=== PATIENT | male | born 1990 | race Hispanic/Latino ===

== ENCOUNTER 2020-03-11 18:11 | Emergency (ER) | payer SELFPAY ==
--- NOTE | 2020-03-11 20:14 | ER ---
Nurse's Notes [facility] Name: Davey Palma Age: 29 yrs Sex: Male : 1990 Arrival Date: 03/11/2020 Time: 18:17 Bed External Waiting [facility] MD: Diagnosis: Presentation: 03/11 18:33 Chief complaint: Patient states: was diagnosed with hemorrhoids on , today em rectal pain became worse, also reports rectal bleeding for about a year, denies abdominal pain or fever. Coronavirus screen: Client denies travel out of the [place] in the last 14 days. Ebola Screen: Patient negative for fever greater than or equal to 101.5 degrees Fahrenheit, and additional compatible Ebola Virus Disease symptoms Patient denies exposure to infectious person. Patient denies travel to an Ebola-affected area in the 21 days before illness onset. No symptoms or risks identified at this time. Initial Sepsis Screen: Does the patient meet any 2 criteria? No. Patient's initial sepsis screen is negative. Does the patient have a suspected source of infection? No. Patient's initial sepsis screen is negative. Risk Assessment: Do you want to hurt yourself or someone else? Patient reports no desire to harm self or others. Onset of symptoms was March 07, 2020. 18:33 Method Of Arrival: Ambulatory em 18:33 Acuity: ROSEY 3 em Historical: - Allergies: 18:37 No Known Allergies; em - PMHx: 18:37 Asthma; em - PSHx: 18:37 None; em - Immunization history:: Adult Immunizations up to date. - Social history:: Smoking status: Patient denies any tobacco usage or history of. Vital Signs: 18:33 BP 127 / 81; Pulse 70; Resp 18; Temp 99.1; Pulse Ox 100% on R/A; Weight 99.79 kg; em Height 6 ft. 1 in. (185.42 cm); Pain 7/10; 18:33 Body Mass Index 29.03 (99.79 kg, 185.42 cm) em ED Course: 18:17 Patient arrived in ED. ag5 18:36 Triage completed. em 18:37 Arm band placed on. em Administered Medications: No medications were administered Outcome: 20:14 Patient left the ED. sg Signatures: Parag Katz RN RN Bryant Barron, RN RN em Mary, Tawanda ag5
[2020-03-11 20:33] VITALS: BP 127/81; TEMP 99.1; O2SAT 100
== END 2020-03-11 20:14 | disposition left against medical advice (07) ==
LOC: ER 18:11
DX: Z53.21 Procedure and treatment not carried out due to patient leaving prior to being seen by health care provider (principal)
CPT/HCPCS: 99281

== ENCOUNTER 2024-10-15 08:35 | Emergency (ER) | payer SELFPAY ==
--- OUTSIDE RECORDS SUMMARY | 2024-10-15 08:39 | XMS REPORT | Continuity of Care Document ---
Author Name Unknown Address [address] [facility] [place] [address] [facility] [place] Address [address] [facility] [place] [address] Care Team Providers Care Conduit Installer Name Role Phone RAVI MERINO Attending Clinician Unava ilable [facility]_WalkInSchedul Attending Clinician Unavail able [facility]WalkInSchedul Admitting Clinician Unavail able Payers Payer Name Policy Type Policy Number Effective Date Expirati on Date Source Problems Condition Name Condition Details Condition Category Status Onset Date Resolution Date Last Treatment Date Treating Clinician Comments Source Acute upper respirator y infection Acute Upper Respirator y Infection Problem Active 07-24 00:00: 00 [facility] Upper respirator y tract finding Upper Respirator y Tract Finding Problem Active 07-24 00:00: 00 [facility] Internal hemorrhoid s Internal Hemorrhoid s Problem Active 10-31 00:00: 00 [facility] Gastroesop hageal reflux disease without esophagiti s Gastroesop hageal Reflux Disease without Esophagiti s Problem Active 10-31 00:00: 00 [facility] Social History Smoking Status Start Date Stop Date Source Never Smoker [facility] Medications Ordered Medication Name Filled Medication Name Start Date Stop Date Current Medication? Ordering Clinician Indication Dosage Frequency Signature (SIG) Comments Components Source Kenalog-80 80 mg/mL suspension for injectionTa ke 80 mg by injection route. Kenalog-80 80 mg/mL suspension for injectionTa ke 80 mg by injection route. 07-24 17:25: 39 No 80mg Kenalog-80 80 mg/mL suspension for injectionT alexandr 80 mg by injection route. [facility] bromphenira mine-pseudo ephedrine-D M 2 mg-30 mg-10 mg/5 mL oral syrup Take 10 mL every 4 hours by oral route. bromphenira mine-pseudo ephedrine-D M 2 mg-30 mg-10 mg/5 mL oral syrup Take 10 mL every 4 hours by oral route. No 10mL Q4H bromphenir amine-pseu doephedrin e-DM 2 mg-30 mg-10 mg/5 mL oral syrup Take 10 mL every 4 hours by oral route. [facility] Motrin Dual Action with Tylenol 125 mg-250 mg tablet Take 2 tablets every 8 hours by oral route for 4 days. Motrin Dual Action with Tylenol 125 mg-250 mg tablet Take 2 tablets every 8 hours by oral route for 4 days. No 2 Q8H Motrin Dual Action with Tylenol 125 mg-250 mg tablet Take 2 tablets every 8 hours by oral route for 4 days. [facility] omeprazole 40 mg capsule,del ayed release Take 1 capsule every day by oral route. omeprazole 40 mg capsule,del ayed release Take 1 capsule every day by oral route. No 1capsul e(s) Q1D omeprazole 40 mg capsule,de layed release Take 1 capsule every day by oral route. [facility] Zithromax Z-Richard 250 mg tablet TAKE 2 TABLETS (500 MG) BY ORAL ROUTE ONCE DAILY FOR 1 DAY THEN 1 TABLET (250 MG) BY ORAL ROUTE ONCE DAILY FOR 4 DAYS Zithromax Z-Richard 250 mg tablet TAKE 2 TABLETS (500 MG) BY ORAL ROUTE ONCE DAILY FOR 1 DAY THEN 1 TABLET (250 MG) BY ORAL ROUTE ONCE DAILY FOR 4 DAYS No Zithromax Z-Richard 250 mg tablet TAKE 2 TABLETS (500 MG) BY ORAL ROUTE ONCE DAILY FOR 1 DAY THEN 1 TABLET (250 MG) BY ORAL ROUTE ONCE DAILY FOR 4 DAYS [facility] Immunizations Ordered Immunization Name Filled Immunization Name Date Status Comments Source COVID-19 (SARS-COV-2) vaccine, unspecified COVID-19 (SARS-COV-2) vaccine, unspecified Unknown Completed [facility] Vital Signs Vital Name Observation Time Observation Value Comments S ource Height 2024-07-24 00:00:00 74 [in_i] [facility] BP Systolic 2024-07-24 00:00:00 119 mm[Hg] [facility] BMI (Body Mass Index) 2024-07-24 00:00:00 27.2 kg/m2 [facility] Body Weight 2024-07-24 00:00:00 3384 [oz_av] [facility] BP Diastolic 2024-07-24 00:00:00 87 mm[Hg] [facility] Height 2024-04-23 00:00:00 74 [in_i] [facility] Body Weight 2024-04-23 00:00:00 3320 [oz_av] [facility] BP Systolic 2024-04-23 00:00:00 121 mm[Hg] [facility] BMI (Body Mass Index) 2024-04-23 00:00:00 26.6 kg/m2 [facility] BP Diastolic 2024-04-23 00:00:00 87 mm[Hg] [facility] BMI (Body Mass Index) 2023-11-01 00:00:00 27.3 kg/m2 [facility] Body Weight 2023-11-01 00:00:00 3408 [oz_av] [facility] BP Systolic 2023-11-01 00:00:00 116 mm[Hg] [facility] BP Diastolic 2023-11-01 00:00:00 85 mm[Hg] [facility] Height 2023-11-01 00:00:00 74 [in_i] [facility] Height 2023-10-20 00:00:00 74 [in_i] [facility] BP Diastolic 2023-10-20 00:00:00 81 mm[Hg] [facility] Body Weight 2023-10-20 00:00:00 3458 [oz_av] [facility] BP Systolic 2023-10-20 00:00:00 109 mm[Hg] [facility] BMI (Body Mass Index) 2023-10-20 00:00:00 27.7 kg/m2 [facility] BP Diastolic 2022-10-20 00:00:00 80 mm[Hg] [facility] Height 2022-10-20 00:00:00 74 [in_i] [facility] BMI (Body Mass Index) 2022-10-20 00:00:00 28.5 kg/m2 [facility] BP Systolic 2022-10-20 00:00:00 122 mm[Hg] [facility] ia Medical Body Weight 2022-10-20 00:00:00 3554 [oz_av] [facility] Procedures Procedure Date / Time Performed Performing Clinicia n Source CT, abdomen + pelvis, w/wo contrast 2024-04-23 00:00[facility]00 [facility] Start Date/Time End Date/Time Encounter Type Admission Type Attending [facility] Care Department Encounter ID Source 2024-07-24 00:00:00 2024-07-24 00:00:00 Livier Finnegan, [employer]: [address] [address] , Ph. [facility] - GC_CPC_Need angi Office [id number] [facility] 2024-04-23 00:00:00 2024-04-23 00:00:00 Moris Valerio, [employer]: [address] [address] , Ph. [facility] - GC_CPC_Need angi Office [id number] [facility] 2023-12-20 19:25:00 2023-12-20 21:48:00 Emergency E RAVI MERINO [facility] [id number] 00 [facility] 2023-11-01 00:00:00 2023-11-01 00:00:00 Rochelle Davies PA: [address] [address] , Ph. [facility] - GC_CPC_Need angi Office [id number] [facility] 2023-10-20 00:00:00 2023-10-20 00:00:00 Moris Valerio, [employer]: [id number] [address] , Ph. [facility] - GC_CPC_Need angi Office [id number] [facility] 2023-04-06 00:00:00 2023-04-06 00:00:00 Outpatient [facility]_Walk InSchedul [facility] [id number] [facility] 2022-10-20 00:00:00 2022-10-20 00:00:00 Outpatient GC_CPC_Walk [facility] [id number] [facility] 2022-10-20 00:00:00 2022-10-20 00:00:00 JAMILA Capone: [id number] [phone] , Ph. [facility] - GC[facility]CPC_[facility] Office [id number] [facility] Results Test Description Test Time Test Comments Results Result Co mments Source [facility]
--- NOTE | 2024-10-15 10:00 | RAD REPORT ---
EXAMINATION: XR LEFT ANKLE CLINICAL INDICATION: Male, 34 years old. Pain;Swelling TECHNIQUE: 3 view radiograph of the left ankle were obtained. COMPARISON: No prior exam. FINDINGS: Moderate lateral soft tissue swelling is present. No fracture or dislocation. Tiny calcanea l spurs.
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
[2024-10-16 12:39] VITALS: BP 116/86; TEMP 98.1; O2SAT 100
== END 2024-10-15 11:00 | disposition home or self-care (01) ==
LOC: ER 08:35
DX: M25.572 Pain in left ankle and joints of left foot (principal)
CPT/HCPCS: 99282

== ENCOUNTER 2024-10-25 08:17 | Emergency (ER) | payer SELFPAY ==
--- OUTSIDE RECORDS SUMMARY | 2024-10-25 08:20 | XMS REPORT | Continuity of Care Document ---
Author Name Unknown Address [address] [facility] [address] [place] [address] [facility] [address] [facility] [address] [place] [address] Care Team Providers Care Yard Motor Operator Name Role Phone RAVI MERINO Attending Clinician [...] Upper Respirator y Tract Finding Problem Active - 00:00: 00 [facility] Internal hemorrhoid s [...] mL every 4 hours by oral route. [facility] Motrin Dual Action with Tylenol [...] hours by oral route for 4 days. [facility] omeprazole 40 mg capsule,del ayed release Take 1 capsule every day by oral route. omeprazole 40 mg capsule,del ayed release Take 1 capsule every day by oral route. No 1capsul e(s) Q1D omeprazole 40 mg capsule,de layed release Take 1 capsule every day by oral route. [facility] Zithromax Z-Richard 250 mg tablet TAKE 2 [...] ORAL ROUTE ONCE DAILY FOR 4 DAYS [facility] Immunizations Ordered Immunization Name Filled Immunization Name Date Status Comments Source COVID-19 (SARS-COV-2) vaccine, unspecified COVID-19 (SARS-COV-2) vaccine, unspecified Unknown Completed [facility] Vital Signs Vital Name Observation Time Observation Value Comments S ource Height 2024-07-24 00:00:00 74 [in_i] [facility] Medical BP Systolic 2024-07-24 00:00:00 [...] Medical BP Systolic 2022-10-20 00:00:00 122 mm[Hg] [facility] Body Weight 2022-10-20 00:00:00 3554 [oz_av] [facility] Procedures Procedure Date / Time Performed Performing Clinicia n Source CT, abdomen + pelvis, w/wo contrast 2024-04-23 00:00:00 [facility] Encounters Start Date/Time End Date/Time Encounter Type Admission Type Attending [facility] Care Facility Care Department Encounter ID Source 2024-07-24 00:00:00 2024-07-24 00:00:00 Livier Finnegan, CANINE ENFORCEMENT OFFICER: [address] [address] , Ph. [facility] - GC_CPC_Need angi Office [id number] [facility] 2024-04-23 00:00:00 2024-04-23 00:00:00 Moris Valerio, CANINE ENFORCEMENT OFFICER: [address] [address] , Ph. [facility] - GC_CPC_Need angi Office [id number] [facility] 2023-12-20 19:25:00 2023-12-20 21:48:00 Emergency E RAVI MERINO [facility] [id number] [facility] 2023-11-01 00:00:00 2023-11-01 00:00:00 Rochelle Davies PA: [address] [address] , Ph. [facility] - GC_CPC_Need angi Office [id number] [facility] 2023-10-20 00:00:00 2023-10-20 00:00:00 Moris Valerio, CANINE ENFORCEMENT OFFICER: [address] [address] , Ph. [facility] - GC_CPC_Need angi Office [id number] [facility] 2023-04-06 00:00:00 2023-04-06 00:00:00 [facility] [id number] [facility] 2022-10-20 00:00:00 2022-10-20 00:00:00 [facility] [id number] [facility] 2022-10-20 00:00:00 2022-10-20 00:00:00 JAMILA Capone: [address] [address] , Ph. [facility] - _CPC_Need [facility] Office [id number] [facility] Results Test Description Test Time Test Comments Results Result Co mments Source [facility]
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
[2024-10-25 09:33] VITALS: BP 132/79; TEMP 97.8; O2SAT 98
== END 2024-10-25 09:26 | disposition home or self-care (01) ==
LOC: ER 08:17
DX: R20.2 Paresthesia of skin (principal)
CPT/HCPCS: 99283